=== PATIENT | male | born 1970 | race Caucasian/White ===

== ENCOUNTER 2022-11-20 14:27 | Emergency (ER) | payer OTHER, SELFPAY ==
--- NOTE | ~2022-11-20 | XR_ITS ---
EXAMINATION: XR foot RT 2V INDICATION: Right foot pain TECHNIQUE: Three views of the right ankle are obtained. COMPARISON: None available FINDINGS: There is a partially imaged oblique fracture of the distal fibula as described on ankle rad iograph. No fracture, dislocation, or subluxation of the foot identified. The foot soft tissues are u nremarkable. A plantar calcaneal enthesophyte is noted. IMPRESSION: 1. No acute osseous abnormality of the foot. 2. Distal fibular fracture. Reviewed, dictated and finalized at location L.
--- NOTE | ~2022-11-20 | XR_ITS ---
EXAMINATION: XR ankle RT min 3V INDICATION: Right ankle pain, initial encounter TECHNIQUE: Four views of the right ankle are obtained. COMPARISON: None available FINDINGS: There is an acute, traumatic, closed, oblique fracture of the distal fibula ending above th e level of the tibial plafond. No additional fracture is identified. Soft tissue swelling surrounds t he ankle. A posterior calcaneal enthesophyte is noted. There is mild osteoarthritis of the midfoot. IMPRESSION: 1. Acute oblique fracture of the distal fibula above the level of the tibial plafond. Reviewed, dictated and finalized at location L. IMPRESSION: 1. Acute oblique fracture of the distal fibula above the level of the tibial pl afond.
[2022-11-20 14:30] VITALS: BP 177/123; PULSE 80; RESP 18; TEMP 36.9; O2SAT 97
[2022-11-20] MEDS: IBUPROFEN 600 MG TABLET PO (15:04)
--- NOTE | 2022-11-20 16:25 | ED.LOWEXIN ---
HPI - Extremity Injury (Lower) General Chief Complaint: Extremity Injury, Lower Stated Complaint: right ankle pain Time Seen by Provider: 11/20/22 14:33 Source: patient and family Mode of arrival: ambulatory Limitations: no limitations History of Present Illness HPI Narrative: this is a 52-year-old gentleman that presents after he was outdoors and running down a hill and twisted his right foot and ankle causing pain swelling and some bruising with some limited range of motion secondary to pain and swelling with a strong brisk pedal pulses on the right with no numbness or tingling. complaint: ankle injury Onset (ago): hour(s) Injury: Right: ankle ( SWelling bruising) Type of Injury: blunt and inversion Place: street/outdoors Severity: moderate Severity scale (1-10): 7 Relieving factors: immobilization Exacerbating factors: weight bearing and movement Context: running Related Data Home Medications Medication Instructions Recorded Confirmed losartan 50 mg tablet 100 mg PO DAILY 11/20/22 11/20/22 Allergies Allergy/AdvReac Type Severity Reaction Status Date / Time Penicillins Allergy Hives Verified 11/20/22 15:00 Review of Systems Review of Systems: All systems reviewed & are unremarkable except as noted in HPI and below PMFSH Past Medical History Medical History HTN (hypertension) Exam Const: General: healthy appearing Nutritional Appearance: well nourished Orientation/consciousness: patient oriented x3 Limitations: no limitations Eyes: Conjunctivae: conjunctivae normal Neck: Neck: normal visual inspection Chest: Chest palpation & inspection: normal inspection of the chest Resp: Effort & Inspection: normal respiratory effort Auscultation: clear to auscultation bilaterally Cardio: Rate: regular rate Rhythm: regular rhythm GI: GI Palp: Yes Soft to palpation Back/Spine/Pelvis: Back: no CVA tenderness Skin: Wounds: wounds noted Neuro: General: patient oriented x3 and moves all extremities Extrem: Other: swelling and tenderness right ankle with bruising Psych: Mental Status: mental status grossly normal Affect: normal affect Course Course Emergency Course: x-rays reviewed with patient and show acute oblique fracture of the distal S fibula above the level of the tibial plafond Vital Signs Vital signs: Vital Signs Temperature 36.9 C 11/20/22 14:30 Pulse Rate 80 11/20/22 14:30 Respiratory Rate 18 11/20/22 14:30 Blood Pressure 177/123 H 11/20/22 14:30 Pulse Oximetry 97 11/20/22 14:30 Oxygen Delivery Room Air 11/20/22 14:30 Temperature 36.9 C 11/20/22 14:30 Pulse Rate 80 11/20/22 14:30 Respiratory Rate 18 11/20/22 14:30 Blood Pressure 177/123 H 11/20/22 14:30 Pulse Oximetry 97 11/20/22 14:30 Oxygen Delivery Room Air 11/20/22 14:30 Critical Care Time Critical Care Time Critical Care Time: No Discharge Plan Discharge Clinical Impression: Closed right fibular fracture Qualifiers: Encounter type: initial encounter Fibula location: shaft Fracture morphology: oblique Fracture alignment: nondisplaced Qualified Code(s): S82.434A - Nondisplaced oblique fracture of shaft of right fibula, initial encounter for closed fracture Patient Disposition: Home, Self-Care Condition: Stable Instructions: Antibiotic Form, Ankle Fracture (ED) Additional Instructions: follow-up with orthopedics for further evaluation and treatment advised to call office for an appointment. Continue OCL with no weight-bearing. Prescriptions: New tramadol 50 mg tablet 50 mg PO Q6H PRN (Reason: pain) Qty: 20 0RF No Action losartan 50 mg tablet 100 mg PO DAILY Follow-up/Referrals: Elis,Meghna Tavarez APN [Primary Care Provider] - Time of Disposition: 16:33
[2022-11-20 17:00] VITALS: BP 150/88; PULSE 73; RESP 17; TEMP 36.2; O2SAT 100
== END 2022-11-20 17:00 | disposition home or self-care (01) ==
PROVIDERS: Emergency Provider Emergency Medicine; PCP Nurse Practitioner Family
DX: S82.434A Nondisplaced oblique fracture of shaft of right fibula, initial encounter for closed fracture (principal); X50.0XXA Overexertion from strenuous movement or load, initial encounter
CPT/HCPCS: 29515; 73610; 73620; 99283; A9270